=== PATIENT | male | born 1990 | race American Indian/Alaskan Native ===

== ENCOUNTER 2018-04-19 11:09 | Emergency (ER) | payer OTHER ==
[2018-04-19] MEDS ORDERED: XYLOCAINE 2% INFILTRATI ONE (15:59)
--- NOTE | 2018-04-19 16:03 | Emergency Department Report ---
ED Laceration HPI - HPI Chief Complaint: Wound/Laceration Stated Complaint: RIGHT LEG LACERATION Time Seen by Provider: 04/19/18 15:47 Occurred When: Today Location: Lower Extremity (right calf) Severity: moderate Tetanus Status: Not up to Date Laceration Symptoms: Yes Pain, No Foreign Body Sensation, No Numbness, No Weakness Other History: This is a 27-year-old -[place] male who presents with a laceration to right calf. Patient states he was sweeping with a broken metal broom and accidentally lodged into right calf while cleaning. Patient states he wrapped paper towel around wound and came directly to the emergency department for evaluation. Patient denies sensation of foreign object, numbness or tingling, swelling, erythema, or surrounding warmth. ED Review of Systems ROS: Stated complaint: RIGHT LEG LACERATION Other details as noted in HPI Constitutional: denies: chills, fever Respiratory: denies: cough, shortness of breath, wheezing Cardiovascular: denies: chest pain, palpitations Gastrointestinal: denies: abdominal pain, nausea, diarrhea Skin: lesions (laceration to right calf). denies: rash Neurological: denies: headache, weakness, paresthesias Psychiatric: denies: anxiety, depression ED Past Medical Hx - Past Medical History Previous Medical History?: No - Surgical History Past Surgical History?: No - Social History Smoking Status: Never Smoker - Medications Home Medications: Home Medications Medication Instructions Recorded Confirmed Last Taken Type Ibuprofen [Motrin 800 MG tab] 800 mg PO Q8HR PRN #12 tablet 04/19/18 Unknown Rx Sulfamethoxazole/Trimethoprim 1 each PO BID #14 tablet 04/19/18 Unknown Rx [Bactrim DS TAB] Laceration Physical Exam - Exam General: Vital signs noted. No distress. Alert and acting appropriately. Wound Length (cm): 2 Laceration Location: Lower Extremity Full Body Front + Back: 1 - 2 cm linear laceration into muscle of right calf, no active bleeding, no visualized tendon or vessel, no surrounding cellulitis Laceration Exam: Yes Normal Distal CMS, No Foreign Body, No Exposed Tendon, Vessel, or Nerve, No Tendon Injury ED Course Vital Signs 04/19/18 12:00 Temperature 99.2 F Pulse Rate 88 Respiratory 16 Rate Blood Pressure 120/71 O2 Sat by Pulse 97 Oximetry - Laceration /Wound Repair Right Posterior Calf Wound Location: lower extremity Wound Length (cm): 2 Wound's Depth, Shape: into muscle, linear Wound Explored: clean Irrigated w/ Saline (ccs): 4 Betadine Prep?: Yes Anesthesia: 1% Lidocaine (2% lidocaine without epi) Volume Anesthetic (ccs): 3 Wound Repaired With: sutures Suture Size/Type: 5:0 Number of Sutures: 7 Layer Closure?: No Sterile Dressing Applied?: Yes ED Medical Decision Making - Medical Decision Making This is a 27 y.o. male presents with a 2 cm laceration to right posterior calf this morning. Patient examined by me. Patient is non-toxic appearing and stable. No labs or radiograph obtained at this time. Patient given tetanus vaccine while in ER. Sutures placed, revealing note. Discharged home for outpatient treatment with bactrim. Discussed ER care plan with patient. Patient agreed with plan. F/U with PCP. Critical care attestation.: If time is entered above; I have spent that time in minutes in the direct care of this critically ill patient, excluding procedure time. ED Disposition Clinical Impression: Laceration of lower extremity excluding thigh Qualifiers: Encounter type: initial encounter Laterality: right Qualified Code(s): S81.811A - Laceration without foreign body, right lower leg, initial encounter Disposition: TO HOME OR SELFCARE Is pt being admited?: No Does the pt Need Aspirin: No Condition: Stable Instructions: Suture Care (ED), Laceration (ED) Additional Instructions: Take antibiotics as prescribed for the full course. Keep wound dry and clean for 48 hours. Avoid putting to much tension on wound site. Follow up with Primary Care Provider in 2-3 days. Have sutures removed in 7 days by primary care provider or in ER. Return to ER if red, swollen, foul discharge, or fever. Prescriptions: Ibuprofen [Motrin 800 MG tab] 800 mg PO Q8HR PRN #12 tablet PRN Reason: Pain , Severe (7-10) Sulfamethoxazole/Trimethoprim [Bactrim DS TAB] 1 each PO BID #14 tablet Referrals: HEIDI GOMEZ MD [Primary Care Provider] - 3-5 Days Forms: Work/School Release Form(ED) Time of Disposition: 17:07 Print Language: NEPALI
[2018-04-19] MEDS ORDERED: BOOSTRIX IM ONE (16:04)
[2018-04-19 17:20] VITALS: BP 112/72
== END 2018-04-19 17:18 | disposition home or self-care (01) ==
LOC: ED 11:09
DX: S81.811A Laceration without foreign body, right lower leg, initial encounter (principal); W26.8XXA Contact with other sharp object(s), not elsewhere classified, initial encounter; Y93.89 Activity, other specified; Y99.8 Other external cause status; Y92.89 Other specified places as the place of occurrence of the external cause
CPT/HCPCS: 90471; 90715; 99282

== ENCOUNTER 2018-04-28 21:07 | Emergency (ER) | payer OTHER ==
[2018-04-28 21:13] VITALS: BP 125/71
== END 2018-04-28 21:12 | disposition left against medical advice (07) ==
LOC: ED 21:07
DX: Z48.02 Encounter for removal of sutures (principal); Z53.21 Procedure and treatment not carried out due to patient leaving prior to being seen by health care provider